=== PATIENT | male | born 1980 | race African-American/Black ===

== ENCOUNTER 2023-10-06 20:48 | Emergency (ER) | payer OTHER | END 2023-10-06 22:10 | disposition home or self-care (01) | LOC: JP.ED 20:48 | DX: F17.210 Nicotine dependence, cigarettes, uncomplicated (principal); H61.22 Impacted cerumen, left ear; Z88.0 Allergy status to penicillin | CPT/HCPCS: 99282 ==

== ENCOUNTER 2024-01-03 20:11 | Emergency (ER) | payer OTHER ==
[2024-01-03 20:28] LABS: BASOPHILS ABSOLUTE AUTO 0.04 K/uL (0.00-0.10); BASOPHILS PERCENT AUTO 0.3 % (0.1-1.3); EOSINOPHILS PERCENT AUTO 0.2 % (0.0-5.4); HEMATOCRIT 45.8 % (38.4-49.7); HEMOGLOBIN 16.4 g/dL (12.9-16.9); IMMATURE GRAN ABSOLUTE AUTO 0.07 K/uL (0.00-0.23); IMMATURE GRAN PERCENT AUTO 0.6 % (0.0-0.7); LYMPHOCYTES ABSOLUTE AUTO 1.35 K/uL (0.8-3.3); LYMPHOCYTES PERCENT AUTO 11.7 % (11.4-47.7); MEAN CORPUSCULAR HEMOGLOBIN 29.7 pg (31.6-35.5); MEAN CORPUSCULAR HGB CONC 35.8 g/dL (31.6-35.5); MEAN CORPUSCULAR VOLUME 82.8 fL (81.4-99.0); MONOCYTES ABSOLUTE AUTO 1.02 K/uL (0.20-0.90); MONOCYTES PERCENT AUTO 8.9 % (3.3-12.6); NEUTROPHILS ABSOLUTE AUTO 9.01 K/uL (1.0-7.6); NEUTROPHILS PERCENT AUTO 78.3 % (40.0-78.1); PLATELET COUNT,PLT 90 K/uL (130-375); RED BLOOD CELL COUNT 5.53 M/uL (4.14-5.76); WHITE BLOOD CELL COUNT,WBC 11.5 K/uL (3.2-11.0)
[2024-01-03 20:30] LABS: EOSINOPHILS ABSOLUTE AUTO 0.02 K/uL (0.00-0.40)
[2024-01-03 20:50] LABS: BLOOD UREA NITROGEN,BUN 10 mg/dL (7-18); CALCIUM 8.9 mg/dL (8.5-10.1); CARBON DIOXIDE,CO2 21 mmol/L (21-32); CHLORIDE,CL 95 mmol/L (100-108); CREATININE 1.5 mg/dL (0.8-1.3); ESTIMATED GFR 60 mL/min (>60); GLUCOSE RANDOM 117 mg/dL (74-106); SODIUM,NA 131 mmol/L (140-148)
[2024-01-03 20:54] LABS: ANION GAP 17.7 mmol/L (5.0-14.0); POTASSIUM,K 2.7 mmol/L (3.6-5.2); TROPONIN I HIGH SENSITIVITY 255.6 pg/mL (<=60.3)
[2024-01-03] MEDS ORDERED: Naloxone 0.4 MG/ML SDV IVPUSH PRN (21:07)
[2024-01-03] MEDS: HYDROmorphone 0.5 MG/0.5 ML Syringe IVPUSH ONE ×2 (22:16→23:39)
[2024-01-03] MEDS: Potassium Chloride 20 MEQ Tab.ER PO ONE (22:17)
[2024-01-03] MEDS: Sodium Chloride 0.9% 10 ML Syringe FLUSH ONE (22:17)
[2024-01-03] MEDS: Heparin Sodium 5,000 Units/ML Vial IVPUSH ONE (22:31)
[2024-01-03] MEDS: Heparin Sodium/D5W 25,000 UNITS/500 ML BAG IV SCH (22:40)
[2024-01-03] MEDS: Sodium Chloride 0.9% 1,000 ML IV SCH (22:45)
[2024-01-03] MEDS: Iopamidol 612 MG/ML 100 ML Bottle IV ONE (23:15)
[2024-01-03] MEDS: Sodium Chloride 0.9% 100 ML IV ONE (23:16)
[2024-01-03] MEDS ORDERED: Sodium Chloride 0.9% 1,000 ML IV SCH (23:30)
== END 2024-01-04 00:15 ==
LOC: JP.ED 20:11
DX: I26.99 Other pulmonary embolism without acute cor pulmonale (principal); Z88.0 Allergy status to penicillin; Z79.01 Long term (current) use of anticoagulants
CPT/HCPCS: 36415; 71275; 80048; 83880; 84484; 85025; 85379; 93005; 96365; 96375; 96376; 99285; A9270; J1170; J1644; J3490; J7030; Q9967; 93010

== ENCOUNTER 2024-04-03 01:06 | Emergency (ER) | payer MEDICAID ==
[2024-04-03] MEDS ORDERED: Naloxone 0.4 MG/ML SDV IVPUSH PRN (01:44)
[2024-04-03 01:52] LABS: BASOPHILS PERCENT AUTO 0.3 % (0.1-1.3); EOSINOPHILS ABSOLUTE AUTO 0.15 K/uL (0.00-0.40); EOSINOPHILS PERCENT AUTO 2.1 % (0.0-5.4); HEMATOCRIT 43.5 % (38.4-49.7); HEMOGLOBIN 15.3 g/dL (12.9-16.9); IMMATURE GRAN ABSOLUTE AUTO 0.04 K/uL (0.00-0.23); IMMATURE GRAN PERCENT AUTO 0.6 % (0.0-0.7); LYMPHOCYTES ABSOLUTE AUTO 1.45 K/uL (0.8-3.3); LYMPHOCYTES PERCENT AUTO 20.3 % (11.4-47.7); MEAN CORPUSCULAR HEMOGLOBIN 25.5 pg (31.6-35.5); MEAN CORPUSCULAR HGB CONC 35.2 g/dL (31.6-35.5); MEAN CORPUSCULAR VOLUME 72.5 fL (81.4-99.0); MONOCYTES ABSOLUTE AUTO 0.97 K/uL (0.20-0.90); MONOCYTES PERCENT AUTO 13.6 % (3.3-12.6); NEUTROPHILS PERCENT AUTO 63.1 % (40.0-78.1); PLATELET COUNT,PLT 142 K/uL (130-375); WHITE BLOOD CELL COUNT,WBC 7.1 K/uL (3.2-11.0)
[2024-04-03 01:53] LABS: BASOPHILS ABSOLUTE AUTO 0.02 K/uL (0.00-0.10)
[2024-04-03] MEDS: fentaNYL 100 MCG/2 ML SDV IVPUSH ONE (01:53)
[2024-04-03 02:08] LABS: PROTHROMBIN TIME 38.3 sec (9.2-10.6)
[2024-04-03 02:13] LABS: CALCIUM 9.2 mg/dL (8.5-10.1); CREATININE 1.2 mg/dL (0.8-1.3); EST CRCL DRUG DOSING (CG) 93.55 mL/min; TROPONIN I HIGH SENSITIVITY 8.9 pg/mL (<=60.3)
[2024-04-03] MEDS: Acetaminophen 500 MG Tab PO ONE (02:52)
== END 2024-04-03 03:25 | disposition home or self-care (01) ==
LOC: JP.ED 01:06
DX: R07.89 Other chest pain (principal); F17.210 Nicotine dependence, cigarettes, uncomplicated; Z79.01 Long term (current) use of anticoagulants; Z79.899 Other long term (current) drug therapy; Z88.0 Allergy status to penicillin
CPT/HCPCS: 36415; 71045; 80048; 84484; 85025; 85379; 85610; 93005; 96374; 99285; A9270; J3010; 93010; 99284

== ENCOUNTER 2024-12-11 01:17 | Emergency (ER) | payer MEDICAID ==
[2024-12-11 02:54] LABS: BASOPHILS ABSOLUTE AUTO 0.05 K/uL (0.00-0.10); BASOPHILS PERCENT AUTO 1.1 % (0.1-1.3); EOSINOPHILS ABSOLUTE AUTO 0.19 K/uL (0.00-0.40); EOSINOPHILS PERCENT AUTO 4.4 % (0.0-5.4); HEMATOCRIT 34.1 % (38.4-49.7); HEMOGLOBIN 11.3 g/dL (12.9-16.9); IMMATURE GRAN PERCENT AUTO 0.5 % (0.0-0.7); LYMPHOCYTES PERCENT AUTO 32.2 % (11.4-47.7); MEAN CORPUSCULAR HEMOGLOBIN 24.9 pg (31.6-35.5); MEAN CORPUSCULAR HGB CONC 33.1 g/dL (31.6-35.5); MEAN CORPUSCULAR VOLUME 75.1 fL (81.4-99.0); NEUTROPHILS ABSOLUTE AUTO 1.69 K/uL (1.0-7.6); NEUTROPHILS PERCENT AUTO 38.8 % (40.0-78.1); PLATELET COUNT,PLT 170 K/uL (130-375); RED BLOOD CELL COUNT 4.54 M/uL (4.14-5.76); WHITE BLOOD CELL COUNT,WBC 4.4 K/uL (3.2-11.0)
[2024-12-11 02:55] LABS: IMMATURE GRAN ABSOLUTE AUTO 0.02 K/uL (0.00-0.23)
[2024-12-11] MEDS: Sodium Chloride 0.9% 80 ML IV SCH (02:59)
[2024-12-11] MEDS: Iopamidol 612 MG/ML 100 ML Bottle IV SCH (02:59)
[2024-12-11 03:23] LABS: A/G RATIO 0.7 (1.2-2.2); ALBUMIN 3.5 g/dL (3.4-5.0); ANION GAP 15.4 mmol/L (5.0-14.0); BILIRUBIN DIRECT 0.3 mg/dL (0.0-0.2); BILIRUBIN INDIRECT 0.6; BILIRUBIN TOTAL 0.9 mg/dL (0.2-1.0); CALCIUM 8.9 mg/dL (8.5-10.1); EST CRCL DRUG DOSING (CG) 107.8 mL/min; POTASSIUM,K 3.4 mmol/L (3.6-5.2); PROTEIN TOTAL,TP 8.6 g/dL (6.4-8.2)
[2024-12-11] MEDS: Pantoprazole 40 MG Vial IVPUSH ONE (04:23)
[2024-12-11] MEDS: Acetaminophen 500 MG Tab PO ONE (04:41)
[2024-12-11] MEDS: Sodium Chloride 0.9% 1,000 ML IV SCH (04:41)
== END 2024-12-11 05:57 | disposition home or self-care (01) ==
LOC: JP.ED 01:17
DX: K92.1 Melena (principal); F17.210 Nicotine dependence, cigarettes, uncomplicated; Z88.0 Allergy status to penicillin; Z79.01 Long term (current) use of anticoagulants; Z79.899 Other long term (current) drug therapy; Z86.73 Personal history of transient ischemic attack (TIA), and cerebral infarction without residual deficits
CPT/HCPCS: 36415; 74177; 80048; 80076; 82272; 83690; 85025; 86850; 86900; 86901; 96361; 96374; 99285; A9270; J2470; J7030; Q9967; 99283

== ENCOUNTER 2024-12-18 07:10 | Day surgery (SDC) | payer MEDICAID ==
[2024-12-18] MEDS ORDERED: Propofol 200 MG/20 ML SDV ONE ×4 (07:13→08:27)
[2024-12-18] MEDS ORDERED: fentaNYL 50 MCG/ML SDV ONE (07:13)
[2024-12-18] MEDS ORDERED: Midazolam 1 MG/ML 2 ML SDV ONE (07:13)
[2024-12-18] MEDS: Lactated Ringers 1,000 ML IV SCH (07:30)
[2024-12-18] MEDS ORDERED: Lactated Ringers 1,000 ML ONE (08:28)
== END 2024-12-18 10:00 | disposition home or self-care (01) ==
LOC: JP.SDS 07:10
PROVIDERS: ATTEND Surgery
DX: K92.1 Melena (principal); I10 Essential (primary) hypertension; K21.9 Gastro-esophageal reflux disease without esophagitis
CPT/HCPCS: 43235; 45378; J2250; J2704; J3010; J7120; 00813-QZ

== ENCOUNTER 2025-05-02 18:44 | Emergency (ER) | payer MEDICAID ==
[2025-05-02 20:12] LABS: BASOPHILS PERCENT AUTO 0.3 % (0.1-1.3); EOSINOPHILS PERCENT AUTO 0.3 % (0.0-5.4); IMMATURE GRAN PERCENT AUTO 0.3 % (0.0-0.7); LYMPHOCYTES ABSOLUTE AUTO 1.05 K/uL (0.8-3.3); LYMPHOCYTES PERCENT AUTO 16.0 % (11.4-47.7); MONOCYTES ABSOLUTE AUTO 0.42 K/uL (0.20-0.90); MONOCYTES PERCENT AUTO 6.4 % (3.3-12.6); NEUTROPHILS ABSOLUTE AUTO 5.02 K/uL (1.0-7.6); NEUTROPHILS PERCENT AUTO 76.7 % (40.0-78.1); PLATELET COUNT,PLT 219 K/uL (130-375); RED BLOOD CELL COUNT 2.09 M/uL (4.14-5.76); WHITE BLOOD CELL COUNT,WBC 6.6 K/uL (3.2-11.0)
[2025-05-02 20:22] LABS: BASE EXCESS VENOUS -2.8 mm/L; BICARBONATE,VENOUS 20.9 mmol/L; O2 SATURATION VENOUS > 99.3; OXYHEMOGLOBIN 92.1 %; PCO2 VENOUS 31.7 mm/Hg; PH,VENOUS 7.434 (7.350-7.450); PO2 VENOUS 117 mm/Hg
[2025-05-02 20:24] LABS: TOTAL HEMOGLOBIN < 4.8 g/dL (13.5-18.0)
[2025-05-02 20:32] LABS: BASOPHILS ABSOLUTE AUTO 0.02 K/uL (0.00-0.10); EOSINOPHILS ABSOLUTE AUTO 0.02 K/uL (0.00-0.40)
[2025-05-02 20:33] LABS: IMMATURE GRAN ABSOLUTE AUTO 0.02 K/uL (0.00-0.23)
[2025-05-02 20:41] LABS: A/G RATIO 0.6 (1.2-2.2); ALANINE AMINOTRANSFERASE,ALT 55 U/L (12-78); ASPARTATE AMNIOTRANSFERASE,AST 40 U/L (15-37); BILIRUBIN TOTAL 1.1 mg/dL (0.2-1.0); BLOOD UREA NITROGEN,BUN 6 mg/dL (7-18); CARBON DIOXIDE,CO2 24 mmol/L (21-32); CHLORIDE,CL 101 mmol/L (100-108); CREATININE 1.0 mg/dL (0.8-1.3); EST CRCL DRUG DOSING (CG) 111.13 mL/min; ESTIMATED GFR 96 mL/min (>60); GLUCOSE RANDOM 97 mg/dL (74-106); POTASSIUM,K 3.9 mmol/L (3.6-5.2); PROTEIN TOTAL,TP 7.9 g/dL (6.4-8.2); SODIUM,NA 135 mmol/L (140-148)
[2025-05-02] MEDS: Sodium Chloride 0.9% 10 ML Syringe FLUSH ONE (20:43)
[2025-05-02] MEDS: Iopamidol 612 MG/ML 100 ML Bottle IV ONE (20:43)
[2025-05-02 20:48] LABS: LACTIC ACID 5.9 mmol/L (0.4-2.0)
[2025-05-02] MEDS: metroNIDAZOLE/Normal Saline 500 MG in Premix Bag 1 BAG IV ONE (21:39)
[2025-05-03] MEDS: Ondansetron 4 MG/2 ML SDV IVPUSH ONE (00:05)
[2025-05-07 06:33] LABS: ANAPLASMA PHAGOCYTOPHILUM PCR Not Detected; BABESIA MICROTI BY PCR Not Detected; EHRLICHIA CHAFFEENSIS BY PCR Not Detected; EHRLICHIA EWINGII/CANIS BY PCR Not Detected; EHRLICHIA MURIS-LIKE BY PCR Not Detected
== END 2025-05-03 00:40 | disposition other institution (70) ==
LOC: JP.ED 18:44
DX: D64.9 Anemia, unspecified (principal); I10 Essential (primary) hypertension; Z86.73 Personal history of transient ischemic attack (TIA), and cerebral infarction without residual deficits; Z79.01 Long term (current) use of anticoagulants; Z79.899 Other long term (current) drug therapy
CPT/HCPCS: 36415; 36430; 71260; 74177; 80053; 82803; 83605; 83690; 84443; 85025; 86140; 86618; 86850; 86900; 86901; 86920; 86922; 87040; 87468; 87469; 87484; 87798; 94640; 96361; 96365; 96367; 96375; 99285; A9270; J0696; J1836; J2405; J2470; J3374; J7030; J7050; J7620; P9016; Q9967